=== PATIENT | female | born 1965 | race African-American/Black ===

== ENCOUNTER 2021-05-27 16:13 | Emergency (ER) | payer OTHER ==
[~2021-05-27] VITALS: Ht 167.6 cm; Wt 73.0 kg
[2021-05-27 16:42] VITALS: BP 129/83
== END 2021-05-27 21:07 | disposition left against medical advice (07) ==
LOC: ER 16:13
DX: Z53.21 Procedure and treatment not carried out due to patient leaving prior to being seen by health care provider (principal)
CPT/HCPCS: 71045